=== PATIENT | male | born 1970 | race Caucasian/White ===

== ENCOUNTER 2016-11-07 11:33 | Emergency (ER) | payer MEDICAID ==
[~2016-11-07] VITALS: Ht 182.9 cm; Wt 154.2 kg
[2016-11-07] MEDS ORDERED: KETOROLAC TROMETH 30 MG/ML 1ML VIAL IV ONE (13:00)
[2016-11-07 13:30] LABS: Basophils # (auto) 0.1 uL; Basophils % (auto) 0.4 % (0.0-2.0); Eosinophils # (auto) 0.1 uL; Eosinophils % (auto) 0.8 % (0.0-7.0); Hematocrit 45.7 % (41.0-53.0); Hemoglobin 15.7 g/dL (13.5-17.5); Lymphocytes # (auto) 1.7 uL; Lymphocytes % (auto) 11.1 % (10.0-50.0); Mean Corpuscular Hemoglobin 30.9 pg (28.0-32.0); Mean Corpuscular Hgb Conc. 34.5 g/dL (32.0-36.0); Mean Corpuscular Volume 89.7 fL (80.0-100.0); Mean Platelet Volume 8.3 fL (7.4-10.4); Monocytes # (auto) 0.9 uL; Monocytes % (auto) 5.8 % (0.0-12.0); Neutrophils # (auto) 12.6 uL; Neutrophils % (auto) 81.9 % (37.0-80.0); Platelet Count (auto) 262 10^3/uL (140-450); White Blood Cell 15.4 10^3/uL (4.4-10.8)
[2016-11-07 14:02] LABS: Albumin 3.9 g/dL (3.4-5.0); BUN/Creatinine Ratio 16.3; Bilirubin, Total 0.5 mg/dL (0.2-1.0); Potassium 4.4 mmol/L (3.5-5.1); Total Protein 7.5 g/dL (6.4-8.2)
[2016-11-07 14:04] LABS: Magnesium 2.7 mg/dL (1.6-2.6)
[2016-11-07 16:02] LABS: Urine Bilirubin Negative (Negative); Urine Blood Negative /uL (Negative); Urine Color Yellow (Yellow); Urine Glucose Normal (Normal); Urine Ketone Negative (Negative); Urine Mucus FEW (None Seen); Urine Nitrite Negative (Negative); Urine RBC 1 /hpf (0 - 3); Urine Urobilinogen Normal (Negative); Urine pH 5.5 (5.0-8.0)
[2016-11-07 16:47] VITALS: BP 128/70
== END 2016-11-07 16:41 | disposition home or self-care (01) ==
LOC: ER 11:33
DX: K43.9 Ventral hernia without obstruction or gangrene (principal); F17.210 Nicotine dependence, cigarettes, uncomplicated; E66.9 Obesity, unspecified; Z68.42 Body mass index [BMI] 45.0-49.9, adult
CPT/HCPCS: 36415; 74176; 80053; 81001; 83690; 83735; 85025; 94761; 96374; 99285; J1885

== ENCOUNTER 2017-11-10 21:56 | Emergency (ER) | payer MEDICAID ==
[~2017-11-10] VITALS: Ht 182.9 cm; Wt 155.6 kg
[2017-11-10 22:26] VITALS: BP 118/61
[2017-11-10] MEDS ORDERED: FLUORESCEIN SOD 1 MG TEST STRIP LEFTEYE ONE (23:00)
[2017-11-10] MEDS ORDERED: TETRACAINE HCL 0.5% OPTH(EYE) SOLN 4ML LEFTEYE ONE (23:00)
[2017-11-10] MEDS ORDERED: TETRACAINE HCL 0.5% OPTH(EYE) SOLN 4ML ONE ×2 (23:18→23:21)
[2017-11-10] MEDS ORDERED: GENTAMICIN SULF 0.3% OPTH(EYE) OINT 3.5GM EACHEYE ONE (23:45)
[2017-11-10] MEDS ORDERED: CIPROFLOXACIN 0.3%OPTH(EYE) SOL 5ML EACHEYE ONE (23:45)
[2017-11-10] MEDS ORDERED: GENTAMICIN OPTH sol 0.3% 5ml ONE (23:47)
[2017-11-10] MEDS ORDERED: CIPROFLOXACIN 0.3%OPTH(EYE) SOL 5ML ONE (23:47)
[2017-11-11] MEDS ORDERED: BACITRACIN TOP OINT 1 UD PKG TOP ONE ×2 (01:43→01:45)
== END 2017-11-10 23:58 | disposition home or self-care (01) ==
LOC: ER 21:59
DX: T15.02XA Foreign body in cornea, left eye, initial encounter (principal); H16.002 Unspecified corneal ulcer, left eye; X58.XXXA Exposure to other specified factors, initial encounter; Y93.89 Activity, other specified; Y92.89 Other specified places as the place of occurrence of the external cause; Y99.8 Other external cause status
CPT/HCPCS: 65220

== ENCOUNTER 2022-02-26 15:10 | Inpatient (IN) | payer MEDICAID ==
[~2022-02-26] VITALS: Ht 182.9 cm; Wt 152.0 kg
[2022-02-26 16:00] LABS: Basophils # (auto) 0.1 10 ^3/uL (0-0.2); Basophils % (auto) 0.6 % (0.0-2.0); Eosinophils # (auto) 0.2 10 ^3/uL (0-0.8); Eosinophils % (auto) 1.3 % (0.0-7.0); Hematocrit 46.3 % (41.0-53.0); Hemoglobin 15.3 g/dL (13.5-17.5); Lymphocytes % (auto) 12.5 % (10.0-50.0); Mean Corpuscular Hemoglobin 30.2 pg (28.0-32.0); Mean Corpuscular Volume 91.6 fL (80.0-100.0); Monocytes # (auto) 0.9 10 ^3/uL (0-1.3); Monocytes % (auto) 5.4 % (0.0-12.0); Neutrophils # (auto) 12.7 10 ^3/uL (1.6-8.6); Neutrophils % (auto) 80.2 % (37.0-80.0); Nucleated Red Blood Cells % 0.1 %; Red Blood Cells 5.06 10^6/uL (4.5-5.90); Red Cell Distribution Width 14.5 % (11.8-14.3); White Blood Cell 15.8 10^3/uL (4.4-10.8)
[2022-02-26 16:17] LABS: Albumin 3.3 g/dL (3.4-5.0); Calcium 8.7 mg/dL (8.5-10.1); Potassium 3.9 mmol/L (3.5-5.1)
[2022-02-26 16:19] LABS: BUN/Creatinine Ratio 13.1
[2022-02-26 16:22] LABS: Bilirubin, Total 1.2 mg/dL (0.2-1.0); Total Protein 6.6 g/dL (6.4-8.2)
[2022-02-26] MEDS ORDERED: IOHEXOL 350 MG/ML 100ML IJ ONE (17:37)
[2022-02-26] MEDS: VANCOMYCIN 1GM/250ML 250 ML IV ONE ×2 (19:15→20:22)
[2022-02-26] MEDS ORDERED: CEFEPIME 1GM/ 50ML 50 ML IV ONE (19:15)
[2022-02-26] MEDS ORDERED: SODIUM CHLORIDE 0.9% 1,000 ML IV ONE ×2 (19:15→22:00)
[2022-02-26] MEDS ORDERED: MORPHINE SULFATE INJ 2 MG/ml SYRG IV ONE (21:30)
[2022-02-26] MEDS: metroNIDAZOLE 500MG/100ML 100 ML IV SCH (22:00)
[2022-02-26] MEDS ORDERED: ZOLPIDEM TARTRATE 5 MG TAB PO PRN (22:00)
[2022-02-26] MEDS ORDERED: DOCUSATE SOD 100 MG CAP PO PRN (22:00)
[2022-02-27] MEDS ORDERED: MORPHINE SULFATE 4 MG/ML SYR/VIAL ONE (00:37)
[2022-02-27] MEDS: MORPHINE SULFATE INJ 2 MG/ml SYRG IV PRN ×3 (00:39→15:44)
[2022-02-27] MEDS: SOD CHL 0.45% WITH 20MEQ KCL 1,000 ML IV SCH ×3 (00:42→14:40)
[2022-02-27 04:47] LABS: Basophils # (auto) 0.1 10 ^3/uL (0-0.2); Basophils % (auto) 0.4 % (0.0-2.0); Eosinophils # (auto) 0.1 10 ^3/uL (0-0.8); Eosinophils % (auto) 0.7 % (0.0-7.0); Hematocrit 41.7 % (41.0-53.0); Hemoglobin 14.1 g/dL (13.5-17.5); Lymphocytes # (auto) 1.5 10 ^3/uL (0.4-5.4); Lymphocytes % (auto) 8.8 % (10.0-50.0); Mean Corpuscular Hemoglobin 30.9 pg (28.0-32.0); Mean Corpuscular Hgb Conc. 33.9 g/dL (32.0-36.0); Mean Corpuscular Volume 91.1 fL (80.0-100.0); Monocytes # (auto) 0.9 10 ^3/uL (0-1.3); Monocytes % (auto) 5.3 % (0.0-12.0); Neutrophils # (auto) 14.3 10 ^3/uL (1.6-8.6); Neutrophils % (auto) 84.8 % (37.0-80.0); Red Blood Cells 4.57 10^6/uL (4.5-5.90); Red Cell Distribution Width 14.8 % (11.8-14.3); White Blood Cell 16.9 10^3/uL (4.4-10.8)
[2022-02-27 05:15] LABS: Albumin 3.2 g/dL (3.4-5.0); BUN/Creatinine Ratio 16.7; Potassium 4.1 mmol/L (3.5-5.1)
[2022-02-27 05:17] LABS: Bilirubin, Total 0.9 mg/dL (0.2-1.0); Total Protein 6.3 g/dL (6.4-8.2)
[2022-02-27] MEDS: metroNIDAZOLE 500MG/100ML 100 ML IV SCH ×2 (06:00→14:00)
[2022-02-27 07:20] LABS: Urine Bacteria NONE SEEN /hpf (None Seen); Urine Blood 2+ /uL (Negative); Urine Mucus FEW (None Seen); Urine WBC 9 /hpf (0 - 3)
[2022-02-27 07:26] LABS: Creatinine, Urine 258 mg/dL (30.0-125.0); Sodium Urine 23 mmol/L (40-220)
[2022-02-27 07:30] LABS: Urine Specific Gravity > 1.050 (1.001-1.035)
[2022-02-27] MEDS: ONDANSETRON HCL 4 MG/2 ML VIAL IV PRN ×3 (07:57→15:44)
[2022-02-27 08:58] LABS: Amphetamine Screen, Urine NEGATIVE (NEGATIVE); Barbiturate Scree,Urine NEGATIVE (NEGATIVE); Benzodiazephine Screen, Urine NEGATIVE (NEGATIVE); Cannabinoid Screen, Urine NEGATIVE (NEGATIVE); Cocaine Screen, Urine NEGATIVE (NEGATIVE); Opiate Scree,Urine NEGATIVE (NEGATIVE); Phencyclidine Screen, Urine NEGATIVE (NEGATIVE)
[2022-02-27] MEDS ORDERED: cefTRIAXone 1GM/50ML D5W 50 ML IV SCH (09:00)
[2022-02-27] MEDS ORDERED: PANTOPRAZOLE 40 MG/10 ML VIAL INJ IV SCH (10:00)
[2022-02-27] MEDS ORDERED: DOXY-286 PO (15:46)
[2022-02-27 17:12] VITALS: BP 126/74
== END 2022-02-27 17:12 | disposition home or self-care (01) | DRG 207 ==
LOC: ER 15:10 → EDBD 15:10 → EDUNIT# 15:10 → TELE 22:11
PROVIDERS: ADMIT Nurse Practitioner Family; ATTEND Hospitalist
DX: R00.2 Palpitations (principal); N17.9 Acute kidney failure, unspecified; I95.9 Hypotension, unspecified; S09.90XA Unspecified injury of head, initial encounter; D72.829 Elevated white blood cell count, unspecified; E86.0 Dehydration; R73.9 Hyperglycemia, unspecified; Z20.822 Contact with and (suspected) exposure to COVID-19; M54.50 Low back pain, unspecified; R00.0 Tachycardia, unspecified; F17.210 Nicotine dependence, cigarettes, uncomplicated; K46.9 Unspecified abdominal hernia without obstruction or gangrene; W19.XXXA Unspecified fall, initial encounter; Z86.718 Personal history of other venous thrombosis and embolism; Y93.89 Activity, other specified; Y92.89 Other specified places as the place of occurrence of the external cause; Y99.8 Other external cause status
CPT/HCPCS: 36415; 70450; 71045; 71260; 72125; 72131; 74177; 80053; 80307; 81001; 82570; 82962; 83036; 83605; 83735; 83880; 84300; 84484; 85025; 93005; 93306; 96365; 96366; 96375; 96376; 99291; G0378; J2405

== ENCOUNTER 2023-07-27 06:10 | Day surgery (SDC) | payer MEDICAID ==
[2023-07-24 10:59] LABS: Basophils # (auto) 0.1 10 ^3/uL (0-0.2); Basophils % (auto) 0.9 % (0.0-2.0); Eosinophils # (auto) 0.1 10 ^3/uL (0-0.8); Eosinophils % (auto) 1.4 % (0.0-7.0); Hematocrit 42.3 % (41.0-53.0); Hemoglobin 14.2 g/dL (13.5-17.5); Lymphocytes # (auto) 1.5 10 ^3/uL (0.4-5.4); Lymphocytes % (auto) 19.9 % (10.0-50.0); Mean Corpuscular Hemoglobin 30.6 pg (28.0-32.0); Mean Corpuscular Hgb Conc. 33.6 g/dL (32.0-36.0); Mean Corpuscular Volume 91.2 fL (80.0-100.0); Monocytes # (auto) 0.7 10 ^3/uL (0-1.3); Monocytes % (auto) 8.7 % (0.0-12.0); Neutrophils # (auto) 5.3 10 ^3/uL (1.6-8.6); Neutrophils % (auto) 69.1 % (37.0-80.0); Nucleated Red Blood Cells % 0.1 %; Red Blood Cells 4.64 10^6/uL (4.5-5.90); Red Cell Distribution Width 14.4 % (11.8-14.3); White Blood Cell 7.7 10^3/uL (4.4-10.8)
[2023-07-24 11:12] LABS: Urine Bacteria NONE SEEN /hpf (None Seen); Urine Blood Negative /uL (Negative); Urine Clarity Clear (Clear); Urine Color Yellow (Yellow); Urine Mucus FEW (None Seen); Urine Protein, UAD TRACE (Negative); Urine Specific Gravity 1.025 (1.001-1.035); Urine Urobilinogen Normal (Negative); Urine WBC 3 /hpf (0 - 3)
[2023-07-24 11:22] LABS: INR 1.04 (0.9-1.15); Partial Thromboplastin Time 26.5 SEC (24.5-34.5); Prothrombin Time 10.9 sec (9.3-11.8)
[2023-07-24 11:48] LABS: Albumin 4.3 g/dL (3.2-4.8); Alkaline Phosphatase 65 U/L (46-116); Anion Gap 7 (5-15); Aspartate Aminotransferase 19 U/L (13-40); BUN/Creatinine Ratio 7.9 (10.0-20.0); Bilirubin, Total 0.7 mg/dL (0.2-1.0); Blood Urea Nitrogen 9 mg/dL (9-23); Calcium 9.4 mg/dL (8.5-10.1); Carbon Dioxide 26 mmol/L (20-30); Chloride 107 mmol/L (98-107); Glucose 80 mg/dL (74-106); Potassium 4.1 mmol/L (3.5-5.1); Sodium 140 mmol/L (136-145)
[2023-07-24 11:49] LABS: Total Protein 6.7 g/dL (5.7-8.2)
[2023-07-24 12:07] LABS: Alanine Aminotransferase 9 U/L (7-40)
[~2023-07-27] VITALS: Ht 182.9 cm; Wt 135.6 kg
[~2023-07-27 06:10] MED LIST: APIX5TAB PO; ZOLP12.569 PO
[2023-07-27] MEDS ORDERED: ceFAZolin 2 GM/D5W50ml 50 ML IV ONE (06:34)
[2023-07-27] MEDS ORDERED: LIDOCAINE 1% HCL (LOCAL ANESTH.) INJ 20ML MDV ONE (06:38)
[2023-07-27] MEDS ORDERED: BUPIVACAINE 0.25% INJ 50ML VIAL ONE ×2 (06:39→07:14)
[2023-07-27] MEDS ORDERED: DexAMETHasone SOD PHOS 10MG/1ML VIAL INJ ONE (06:55)
[2023-07-27] MEDS ORDERED: PROPOFOL 10 MG/ML 20 ML IV ONE ×2 (06:55→07:28)
[2023-07-27] MEDS ORDERED: KETOROLAC TROMETH 30 MG/ML 1ML VIAL ONE (06:55)
[2023-07-27] MEDS ORDERED: ONDANSETRON HCL 4 MG/2 ML VIAL ONE (06:55)
[2023-07-27] MEDS ORDERED: LIDOCAINE 2% (LOCAL ANESTH.) PF 5ml SDV ONE ×2 (06:55→07:17)
[2023-07-27] MEDS ORDERED: GLYCOPYRROLATE 0.2 MG/ML 1ML VIAL ONE (06:55)
[2023-07-27] MEDS ORDERED: fentaNYL CITRATE 100 MCG/2 ML VL ONE (06:57)
[2023-07-27] MEDS ORDERED: KETAMINE 50mg/ML 1ml syringe ONE (06:57)
[2023-07-27] MEDS ORDERED: ACE650RS PR (07:03)
[2023-07-27] MEDS ORDERED: AUG875T PO (07:03)
[2023-07-27] MEDS ORDERED: PERCOT PO (07:03)
[2023-07-27] MEDS ORDERED: CELECOXIB 100 MG CAP ONE (07:04)
[2023-07-27] MEDS: GABAPENTIN 300 MG CAP ONE (07:05)
[2023-07-27] MEDS: ACETAMINOPHEN IV 1000 MG/100ML (10MG/ML) IV ONE (07:05)
[2023-07-27] MEDS ORDERED: ACETAMINOPHEN IV 100 ML IV ONE (07:05)
[2023-07-27] MEDS ORDERED: EPINEPHrine HCL 1 MG/1 ML AMP ONE (07:14)
[2023-07-27] MEDS ORDERED: DexAMETHasone SOD PHOS 4 MG/1ML SDV INJ ONE (07:14)
[2023-07-27] MEDS ORDERED: BUPIVACAINE 0.5% P/F INJ 10 ML VIAL ONE (07:14)
[2023-07-27] MEDS ORDERED: GABAPENTIN 300 MG CAP PO ONE (07:15)
[2023-07-27] MEDS ORDERED: ceFAZolin 1GM VL ONE (07:26)
[2023-07-27 08:25] VITALS: TEMP 97.2; O2SAT 100
[2023-07-27] MEDS ORDERED: FLUMAZENIL 0.1 MG/ML INJ 10ML MDV IV PRN (08:45)
[2023-07-27] MEDS ORDERED: ONDANSETRON HCL 4 MG/2 ML VIAL IV PRN (08:45)
[2023-07-27] MEDS ORDERED: LABETALOL HCL 5 MG/ML 4ML SYRINGE IV PRN (08:45)
[2023-07-27] MEDS ORDERED: ePHEDrine SULFATE 50 MG/ML AMP IV PRN (08:45)
[2023-07-27] MEDS ORDERED: hydrALAZINE HCL 20 MG/ML VL IV PRN (08:45)
[2023-07-27] MEDS ORDERED: fentaNYL CITRATE 100 MCG/2 ML VL IV PRN (08:45)
[2023-07-27] MEDS ORDERED: oxyCODONE HCL 5MG TAB PO PRN (08:45)
[2023-07-27] MEDS ORDERED: NALOXONE HCL 0.4 MG/ML VIAL IV PRN (08:45)
[2023-07-27] MEDS ORDERED: HYDROmorphone HCL 2 MG/ML VL/or syr IV PRN ×2 (08:45→09:00)
[2023-07-27] MEDS: oxyCODONE HCL 5MG TAB PO PRN (08:53)
[2023-07-27 09:25] VITALS: BP 113/51; PULSE 53; RESP 17; O2SAT 97
== END 2023-07-27 09:30 | disposition home or self-care (01) ==
LOC: SUR 06:10
PROVIDERS: ATTEND Student in an Organized Health Care Education/Training Program
DX: M25.571 Pain in right ankle and joints of right foot (principal); S90.551A Superficial foreign body, right ankle, initial encounter; M65.9 Synovitis and tenosynovitis, unspecified; M13.871 Other specified arthritis, right ankle and foot; Z87.891 Personal history of nicotine dependence; Z98.890 Other specified postprocedural states; Z88.6 Allergy status to analgesic agent; Z88.8 Allergy status to other drugs, medicaments and biological substances; Z88.5 Allergy status to narcotic agent; X58.XXXA Exposure to other specified factors, initial encounter; Y93.89 Activity, other specified; Y92.89 Other specified places as the place of occurrence of the external cause; Y99.8 Other external cause status
CPT/HCPCS: 29894; 36415; 73600; 76000; 80053; 81001; 85025; 85610; 85730; 88305; J0131; J0171; J0690; J1100; J1885; J2001; J2405; J2704; J3490